=== PATIENT | female | born 1985 | race Caucasian/White ===

== ENCOUNTER → 2019-01-30 | Outpatient (CLI) | payer BC ==
--- NOTE | 2019-01-30 11:11 | Diagnostic Imaging Report ---
INDICATION: survey. TECHNIQUE: Multiple real-time grayscale images were obtained over the gravid uterus. COMPARISON: None FINDINGS: There is a single live fetus in a cephalic presentation. heart rate was recorded at 152 beats per minute. The placenta is posterior and fundal. Amniotic fluid volume is normal. survey demonstrates kidneys, bladder, and stomach to be unremarkable. brain is unremarkable. There is a three-vessel cord with normal insertion. spine is unremarkable. Four-chamber heart view is somewhat limited due to position. Biometrical measurements are as follows: Biparietal 5.73 cm, age 23 weeks 4 days. Head circumference 20.96 cm, age 23 weeks 1 days. Abdominal circumference 18.57 cm, age 23 weeks 3 days. Femur length 4.19 cm, age 23 weeks 5 days. Sonographic estimate age: 23 weeks 4 days. Sonographic estimated date of delivery: 06/03/2019. Estimated Weight: 595 gm (+/- 87 gm). LMP percentile: 93%. heart rate: 152 beats per minute. number: 1 of 1. IMPRESSION: Single live IUP approximately 23 weeks 4 days gestational age. The estimated date of confinement sonographically is 06/03/2019. survey is unremarkable although four-chamber heart view is limited and followup to be performed. Dictated by: Dictated on workstation # [id number]
== END ==
LOC: RAD 09:31
PROVIDERS: ATTEND Obstetrics & Gynecology
DX: Z36.89 Encounter for other specified antenatal screening (principal); Z3A.23 23 weeks gestation of pregnancy
CPT/HCPCS: 76805

== ENCOUNTER 2019-05-22 08:55 | Outpatient (CLI) | payer BC ==
[~2019-05-22] VITALS: Ht 177.8 cm; Wt 133.4 kg
[2019-05-22 09:05] VITALS: BP 144/90
[2019-05-22] MEDS ORDERED: CETI10TA17 PO (09:58)
[2019-05-22] MEDS ORDERED: DIPH25CA79 PO (09:58)
[2019-05-22] MEDS ORDERED: MELA1TAB27 PO (09:58)
[2019-05-22] MEDS ORDERED: FLUT9.9S NS (09:58)
[2019-05-22] MEDS ORDERED: INUL1TAB4 PO (09:58)
[2019-05-22] MEDS ORDERED: PNV11TAB5 PO (09:58)
[2019-05-23] MEDS ORDERED: ACHD5005 PO (07:21)
[2019-05-23] MEDS ORDERED: IBUP-844 PO (07:21)
[2019-05-23] MEDS ORDERED: DOCU100C37 PO (07:21)
== END 2019-05-22 09:20 | disposition home or self-care (01) ==
LOC: PREOP 08:55
PROVIDERS: ATTEND Obstetrics & Gynecology
DX: Z01.818 Encounter for other preprocedural examination (principal)
CPT/HCPCS: 87081

== ENCOUNTER 2019-05-23 06:00 | Inpatient (IN) | payer BC ==
[2019-05-23] VITALS (10 sets, daily range): BP systolic 108–139; BP diastolic 57–71
[~2019-05-23] VITALS: Ht 177.8 cm; Wt 132.6 kg
--- NOTE | 2019-05-23 05:55 | NUR ---
CHIP BUSTAMANTE presented to unit via ambulatory from home, accompanied by , with c/o BREECH PRESENTATION. CHIP BUSTAMANTE weighed, gowned, voided, and to bed. EFHM and TOCO applied, VS taken. CHIP BUSTAMANTE oriented to bed controls, call light, TV, heat, and A/C controls.
[~2019-05-23 06:00] MED LIST: CETI10TA17 PO; CITRIC ACID/SOB CIT (BICITRA) 30 ML UDC ONE; DIPH25CA79 PO; FAMOTIDINE 20MG/2ML IV (PEPCID) ONE; FLUT9.9S NS; INUL1TAB4 PO; LACTATED RINGERS 2,000 ML IV ONE; MELA1TAB27 PO; METOCLOPRAMIDE INJ 10 MG/2 ML (REGLAN) ONE; PNV11TAB5 PO; ceFAZolin 2 GM/50 ML NS 50 ML ONE
[2019-05-23] MEDS ORDERED: METOCLOPRAMIDE INJ 10 MG/2 ML (REGLAN) IV ONE (06:15)
[2019-05-23] MEDS ORDERED: FAMOTIDINE 20MG/2ML IV (PEPCID) IV ONE (06:15)
[2019-05-23] MEDS ORDERED: ceFAZolin 2 GM/50 ML NS 50 ML IV ONE (06:15)
[2019-05-23] MEDS ORDERED: CATHETER FLUSH 10 ML SYR IV PRN (06:15)
[2019-05-23] MEDS ORDERED: CITRIC ACID/SOB CIT (BICITRA) 30 ML UDC PO ONE (06:15)
[2019-05-23] MEDS: LACTATED RINGERS 1,000 ML IV PRN ×3 (06:24→08:00)
[2019-05-23 06:27] LABS: BASOPHILS % (AUTO) 0 % (0-10); EOSINOPHILS # (AUTO) 0.1 10^3/uL (0.0-0.3); EOSINOPHILS % (AUTO) 1 % (0-10); HEMATOCRIT 39 % (35-52); HEMOGLOBIN 12.9 G/DL (11.5-16.0); LYMPHOCYTES # (AUTO) 1.4 X 10^3 (1.0-4.0); LYMPHOCYTES % (AUTO) 17 % (12-44); MEAN CORPUSCULAR HEMOGLOBIN 30 PG (25-34); MEAN CORPUSCULAR HGB CONC 33 G/DL (32-36); MEAN CORPUSCULAR VOLUME 89 FL (80-99); MEAN PLATELET VOLUME 11.4 FL (7.4-10.4); MONOCYTES # (AUTO) 0.9 X 10^3 (0.0-1.0); MONOCYTES % (AUTO) 11 % (0-12); NEUTROPHILS # (AUTO) 5.9 X 10^3 (1.8-7.8); NEUTROPHILS % (AUTO) 71 % (42-75); PLATELET COUNT 148 10^3/uL (130-400); RED CELL DISTRIBUTION WIDTH 14.9 % (10.0-14.5); WHITE BLOOD COUNT 8.3 10^3/uL (4.3-11.0)
[2019-05-23 06:34] LABS: BILIRUBIN,URINE NEGATIVE (NEGATIVE); CLARITY,URINE SLIGHTLY CLOUDY; COLOR,URINE YELLOW; GLUCOSE, URINE (UA) NEGATIVE (NEGATIVE); KETONES,URINE 1+ (NEGATIVE); LEUKOCYTE ESTERASE ,URINE 3+ (NEGATIVE); NITRITE,URINE NEGATIVE (NEGATIVE); PH,URINE 5 (5-9); PROTEIN,URINE 2+ (NEGATIVE); UROBILINOGEN,URINE NORMAL (NORMAL)
[2019-05-23 06:43] LABS: BACTERIA,URINE MODERATE /HPF
[2019-05-23] MEDS ORDERED: OXYTOCIN/NORMAL SALINE 500 ML IV ONE ×3 (06:54→10:15)
[2019-05-23] MEDS ORDERED: ONDANSETRON 4 MG/2 ML (SDV) Z0FRAN ONE (06:54)
[2019-05-23] MEDS ORDERED: KETOROLAC 30 MG/ML VIAL ONE (06:54)
[2019-05-23] MEDS ORDERED: fentaNYL INJECTION 100 MCG/2 ML AMP ONE (06:55)
--- NOTE | 2019-05-23 07:10 | History & Physical-OB ---
OB - Chief Complaint & HPI Date/Time Date of Admission: Date of Admission: May 23, 2019 at 06:00 Date seen by a Provider: May 23, 2019 Time Seen by a Provider: 07:00 Chief Complaint/History OB-Reason for Admission/Chief: Section Hx : 1 Hx Para: 0 Expected Date of Delivery: Jun 03, 2019 Gestational Age in Weeks: 38 Gestational Age in Days: 3 Indication for : malpresentation Admission Nurse Assessment Rev: Yes History of Labs Opos Antibody neg RI RPR NR HBsAg NR HIV NR GC neg GBS neg Allergies and Home Medications Allergies Coded Allergies: No Known Drug Allergies (Unverified , 05/23/19) Home Medications Cetirizine HCl 10 Mg Tablet, 10 MG PO HS, (Reported) Diphenhydramine HCl 25 Mg Capsule, 50 MG PO HS, (Reported) take 2 (25mg) tabs Fluticasone Propionate 9.9 Ml [place].susp, 1 SPRAY NS BID, (Reported) Inulin/Chromium Picolinate 1 Each Tab.chew, 1 EACH PO HS, (Reported) Melatonin/Pyridoxine HCl (B6) 1 Each Tablet, 3 MG PO HS, (Reported) Uiv936/FA/Omega3/Dha/Fish Oil 1 Each Tab.chew, 1 EACH PO HS, (Reported) Patient Home Medication List Home Medication List Reviewed: Yes OB - History Hx of Present Care: Yes Ultrasounds: Normal mid trimester US Obstetrical Complications: Gestational Diabetes Medical Complications: None Patient Past Medical History n/a Social History/Family History Alcohol Use: Denies Use Recreational Drug Use: No OB - Admission Exam Physical Exam Vitals: Vital Signs 05/23/19 06:15 Temp 98.6 Pulse 93 Resp 18 B/P (MAP) 139/71 (93) O2 Delivery Room Air HEENT: NCAT Heart: Rhythm Normal Lungs: Clear Abdomen: Gravid Extremities: Normal Reflexes: Normal Heart Rate: 140's Accelerations: Accelerations Present Decelerations: No Decelerations Short Term Variability: Present Half-Way Variability: Average (6-25) Contractions on Admission: 6-10 Minutes Apart Labs Laboratory Tests Test 05/23/19 06:05 05/23/19 06:15 Range/Units Urine Color YELLOW Urine Clarity SLIGHTLY CLOUDY Urine pH 5 5-9 Urine Specific [place] 1.030 H 1.016-1.022 Urine Protein 2+ H NEGATIVE Urine Glucose (UA) NEGATIVE NEGATIVE Urine Ketones 1+ H NEGATIVE Urine Nitrite NEGATIVE NEGATIVE Urine Bilirubin NEGATIVE NEGATIVE Urine Urobilinogen NORMAL NORMAL MG/DL Urine Leukocyte Esterase 3+ H NEGATIVE Urine RBC (Auto) NEGATIVE NEGATIVE Urine RBC NONE /HPF Urine WBC 10-25 H /HPF Urine Squamous Epithelial Cells 10-25 H /HPF Urine Crystals NONE /LPF Urine Bacteria MODERATE H /HPF Urine Casts NONE /LPF Urine Mucus SMALL H /LPF Urine Culture Indicated YES White Blood Count 8.3 4.3-11.0 10^3/uL Red Blood Count 4.37 4.35-5.85 10^6/uL Hemoglobin 12.9 11.5-16.0 G/DL Hematocrit 39 35-52 % Mean Corpuscular Volume 89 80-99 FL Mean Corpuscular Hemoglobin 30 25-34 PG Mean Corpuscular Hemoglobin Concent 33 32-36 G/DL Red Cell Distribution Width 14.9 H 10.0-14.5 % Platelet Count 148 130-400 10^3/uL Mean Platelet Volume 11.4 H 7.4-10.4 FL Neutrophils (%) (Auto) 71 42-75 % Lymphocytes (%) (Auto) 17 12-44 % Monocytes (%) (Auto) 11 0-12 % Eosinophils (%) (Auto) 1 0-10 % Basophils (%) (Auto) 0 0-10 % Neutrophils # (Auto) 5.9 1.8-7.8 X 10^3 Lymphocytes # (Auto) 1.4 1.0-4.0 X 10^3 Monocytes # (Auto) 0.9 0.0-1.0 X 10^3 Eosinophils # (Auto) 0.1 0.0-0.3 10^3/uL Basophils # (Auto) 0.0 0.0-0.1 10^3/uL OB - Assessment/Plan/Diagnosis Assessment Assessment: section Admission Dx 34 yo @ 38 weeks GDM Breech presentation GBS neg Admission Status: Inpatient Order (span 2 midnights) Reason for Inpatient Admission: Primary at term Breech presentation Plan Plan: Section JANESSA KAUR DO May 23, 2019 07:10
[2019-05-23] MEDS ORDERED: MEASLES,MUMPS,RUBELLA 1 EA INJ SC SCH (07:15)
[2019-05-23] MEDS ORDERED: TETANUS,DIPTH,PERTUSS P/F (BOOSTRIX) 0.5 ML VIAL IM SCH (07:15)
[2019-05-23] MEDS ORDERED: ONDANSETRON 4 MG/2 ML (SDV) Z0FRAN IVP PRN ×2 (07:15→08:45)
--- NOTE | 2019-05-23 07:15 | Discharge Inst-Women's Service ---
Discharge Inst-Women's Serv Depart Medication/Instructions New, Converted or Re-Newed RX: RX on Chart Final Diagnosis POD 2 PLTCS Consults/Follow Up Additional Follow Up: Yes Orders/Referrals Dr. Rivera in 7-10 days and in 6 weeks Activity Activity: Activity as Tolerated Driving Instructions: No Driving for 1 Week NO SMOKING: NO SMOKING Nothing Inside Vagina: No Douching, No [place], No Tampons Diet Discharge Diet: No Restrictions Symptoms to Report to : Bleeding Excessive, Pain Increased, Fever Over 101 Degrees F, Vaginal Bleeding Increase, Questions/Concerns For Any Problems or Questions: Contact Your Physician Skin/Wound Care Infection Signs and Symptoms: Increased Redness, Foul Odor of Wound, Increased Drainage, Skin Itchy or Has a Rash, Increased Swelling, Temperature Above 101 F Operative Area Clean and Dry: Keep Incision Clean/Dry Stitches/Point Comfort/Dermabond: Dermabond, Care of Stitches Bathing Instructions: JANESSA Cruz DO May 23, 2019 07:15
[2019-05-23] MEDS ORDERED: DOCU100C37 PO (07:21)
[2019-05-23] MEDS ORDERED: ACHD5005 PO (07:21)
[2019-05-23] MEDS ORDERED: IBUP-844 PO (07:21)
[2019-05-23] MEDS ORDERED: BUPIVACAINE 0.25% 30 ML (SENSORCAINE) VIAL ONE (08:05)
[2019-05-23] MEDS ORDERED: PHENYLEPHRINE 100 MCG/ML 10 ML (ANESTHESIA) SYR ONE (08:05)
[2019-05-23] MEDS ORDERED: morphine INJ 10 MG/ML 1ML (SYR OR VIAL) IVP ONE (08:45)
[2019-05-23] MEDS ORDERED: NALOXONE 0.4 MG/ML 1 ML (NARCAN) VIAL IV PRN ×2 (08:45)
[2019-05-23] MEDS ORDERED: diphenhydrAMINE 50 MG/ML INJ (BENADRYL) IV PRN (08:45)
[2019-05-23] MEDS ORDERED: METOCLOPRAMIDE INJ 10 MG/2 ML (REGLAN) IV PRN (08:45)
[2019-05-23] MEDS ORDERED: ONDANSETRON 4 MG/2 ML (SDV) Z0FRAN IV PRN (08:45)
--- NOTE | 2019-05-23 10:00 | NUR ---
Low transverse incision covered via ABD. No drainage. Cubae in nursery receiving O2 and Level 2 care. Soledad no rooming in at this time. Addendum: 05/23/19 at 1140 by TAYLA GUERRERO RN Amended: Links added.
[2019-05-23] MEDS: OXYTOCIN/NORMAL SALINE 500 ML IV SCH ×2 (10:10→11:16)
[2019-05-23] MEDS: DOCUSATE SODIUM 100 MG (COLACE) CAP PO SCH ×2 (10:46→23:46)
--- NOTE | 2019-05-23 11:00 | NUR ---
RT notified for incentive spirometery
--- NOTE | 2019-05-23 11:03 | NUR ---
Notified Dr Rivera and received Toradol order.
[2019-05-23] MEDS ORDERED: KETOROLAC 30 MG/ML VIAL IVP SCH (11:15)
[2019-05-23] MEDS ORDERED: IBUPROFEN 600 MG (MOTRIN) TAB PO SCH (12:00)
--- NOTE | 2019-05-23 12:15 | NUR ---
Mom to wheelchair into nursery to see dann. IV infusing without difficulty.
--- NOTE | 2019-05-23 13:00 | NUR ---
Room returned to room. No s/s of distress.
[2019-05-23] MEDS: KETOROLAC 30 MG/ML VIAL IVP SCH ×2 (13:50→19:50)
[2019-05-23] MEDS: CATHETER FLUSH 10 ML SYR IV SCH (14:26)
--- NOTE | 2019-05-23 14:41 | NUR ---
Pt up to bathroom. voided 300cc of blood tinge urine.
--- NOTE | 2019-05-23 16:28 | OPERATIVE REPORT ---
DATE OF SERVICE: 05/23/2019 PREOPERATIVE DIAGNOSES: 1. A 34-year-old G1, P0 at 38 weeks gestation. 2. Gestational diabetes. 3. Breech presentation. POSTOPERATIVE DIAGNOSES: 1. A 34-year-old G1, P0 at 38 weeks gestation. 2. Gestational diabetes. 3. Breech presentation. PROCEDURE: Primary low transverse section. SURGEON: Corbin Rivera DO ANESTHESIA: Spinal. ESTIMATED BLOOD LOSS: 500 mL. URINE OUTPUT: 100 mL clear at the end of the procedure. FLUIDS: 1600 mL lactated Ringer's solution. FINDINGS: A live male infant weighing 9 pounds 5 ounces, Apgars of 8 and 9. Grossly normal appearing uterus, bilateral fallopian tubes and ovaries. SPECIMENS SENT: Placenta. INDICATIONS FOR PROCEDURE: This 34-year-old female who is a patient that had sought care in my office and her care was complicated by gestational diabetes having difficulties control with diet towards the end, she was also found to be in the breech presentation and have polyhydramnios on her last ultrasound evaluation. Yesterday breech presentation was persistent. I discussed the patient proceeding with versus external cephalic version. There were significant risk factors. I was concerned with this external cephalic version including the baby's estimated weight, so we agreed to proceed with primary . Risks of the procedure were discussed with the patient in detail and after all of her questions were answered with her present, consent was obtained in the preoperative area and the patient was taken to the operating room. OPERATIVE REPORT IN DETAIL: Once in the operating room, spinal anesthesia was found to be adequate. She was placed in the supine position with a leftward tilt, prepped and draped in normal sterile fashion. A Pfannenstiel skin incision was made with a knife and carried down to the underlying fascia using Bovie cautery. Fascial incision extended laterally using Bovie cautery. Superior aspect of the fascial incision was then grasped with Korina clamps, tented up and dissected off the underlying rectus muscles. The inferior aspect of the fascial incision was then grasped with Korina clamps, tented up and dissected off the underlying rectus muscles. The rectus muscles were then dissected on the midline using Dowd scissors, which exposed the peritoneum, which entered bluntly and extended using blunt traction. An Fabian ring retractor was placed in the peritoneal incision, which offers excellent lateral sidewall retraction. I then make a low transverse incision into the vesicouterine peritoneum and bluntly dissected off the lower uterine segment. I proceeded with Myotomy until membranes were visualized, at which point I extended the uterine incision laterally and superiorly using bandage scissors. Amniotomy is incidentally performed in doing this and clear fluid was noted. The infant was found in a complete breech presentation. The feet grasped and elevated up to the incision were I am able to deliver the buttocks and I delivered the up into the upper torso at which point I delivered the arms after facing the downward by sweeping the arms across the chest and then I delivered the head by gentle extension of the body and flexion of the neck. The nares and oropharynx were bulb suctioned on the operative field. The cord was doubly clamped and cut and infant was handed off to waiting nurses in attendance. Cord blood was collected. Three-vessel cord with intact placenta was delivered spontaneously thereafter. IV Pitocin was initiated to facilitate uterine contraction. Uterine fundus became firmer with bimanual massage. Uterus was then exteriorized and cleared of all endometrial clots and debris. I then proceeded to close the uterine incision using 0 Vicryl suture in a running locked fashion. A second layer of imbricating 0 Monocryl was placed. Excellent hemostasis was noted after doing this. I then placed the uterus back in the pelvis, copiously irrigated the pelvis using normal saline. Once again, there was no active bleeding noted from any of my dissection planes. I placed Interceed antiadhesive over my low transverse incision and proceeded with closing the peritoneum using 3-0 Vicryl suture in running fashion. The rectus muscles were reapproximated using 3-0 Vicryl suture in interrupted fashion. The fascia was reapproximated with 0 Vicryl suture in a running fashion. The subcutaneous tissue was reapproximated using 3-0 plain interrupted subcutaneous stitches and skin reapproximated using 4-0 Monocryl running subcuticular. Dermabond was applied to incision and sterile dressing with adhesive white tape. The patient tolerated the procedure well and was taken to the recovery area in stable condition. Lap and sponge counts were correct at the end of the procedure. Instrument counts were correct as well. Two grams of Ancef were given preoperatively for infection prophylaxis. Job ID: [id number] DocumentID: [id number] Dictated Date: 05/23/2019 10:03:32 Behavioral Health Counselor Date: 05/23/2019 16:27:53 Dictated By: DO THAO PRICE
[2019-05-23] MEDS: HYDROcodone/APAP 5 MG/325 MG (LORTAB) TAB PO PRN (17:32)
[2019-05-24 02:00] VITALS: BP 102/59
[2019-05-24] MEDS: CATHETER FLUSH 10 ML SYR IV SCH ×2 (02:00→07:31)
[2019-05-24] MEDS: HYDROcodone/APAP 5 MG/325 MG (LORTAB) TAB PO PRN ×3 (02:03→22:05)
[2019-05-24] MEDS: KETOROLAC 30 MG/ML VIAL IVP SCH ×2 (02:04→07:30)
[2019-05-24 06:47] LABS: BASOPHILS % (AUTO) 0 % (0-10); EOSINOPHILS # (AUTO) 0.1 10^3/uL (0.0-0.3); EOSINOPHILS % (AUTO) 2 % (0-10); HEMATOCRIT 34 % (35-52); HEMOGLOBIN 11.3 G/DL (11.5-16.0); LYMPHOCYTES # (AUTO) 1.3 X 10^3 (1.0-4.0); LYMPHOCYTES % (AUTO) 17 % (12-44); MEAN CORPUSCULAR HEMOGLOBIN 30 PG (25-34); MEAN CORPUSCULAR HGB CONC 33 G/DL (32-36); MEAN CORPUSCULAR VOLUME 91 FL (80-99); MONOCYTES # (AUTO) 0.8 X 10^3 (0.0-1.0); MONOCYTES % (AUTO) 11 % (0-12); NEUTROPHILS # (AUTO) 5.3 X 10^3 (1.8-7.8); NEUTROPHILS % (AUTO) 70 % (42-75); PLATELET COUNT 123 10^3/uL (130-400); RED CELL DISTRIBUTION WIDTH 15.3 % (10.0-14.5); WHITE BLOOD COUNT 7.5 10^3/uL (4.3-11.0)
[2019-05-24 07:12] LABS: BUN/CREATININE RATIO 13; CALCIUM 8.7 MG/DL (8.5-10.1); CARBON DIOXIDE 19 MMOL/L (21-32); CHLORIDE 112 MMOL/L (98-107); CREATININE SERUM 0.71 MG/DL (0.60-1.30); GFR ESTIMATED > 60; GLUCOSE 69 MG/DL (70-105); POTASSIUM 4.2 MMOL/L (3.6-5.0); SODIUM 139 MMOL/L (135-145)
[2019-05-24] MEDS: DOCUSATE SODIUM 100 MG (COLACE) CAP PO SCH ×2 (07:31→20:40)
[2019-05-24 07:36] VITALS: BP 107/69
--- NOTE | 2019-05-24 07:36 | NUR ---
initial shift assessment completed, see interventions for further. scheduled medications given, see eMar for further.
--- NOTE | 2019-05-24 07:45 | Postpartum Progress Note ---
Note Note Day # 1 Subjective: Patient is without complaints. Ambulating, voiding. Tolerating a regular diet without nausea or vomiting. Normal lochia. Pain is well controlled with oral pain medications. Objective: Physical Exam: General - Alert and oriented, no apparent distress Abdomen - Soft, appropriately tender to palpation, non-distended, fundus firm at umbilicus Extremities - no edema, negative Apple's bilaterally Incision- c/d/i Assessment: POD 1 PLTCS- Breech Acute blood loss anemia Plan: Routine care. Encourage breast feeding. Encourage ambulation. Ferrous sulfate supplementation. Plan for discharge tomorrow Vitals - Labs Vital Signs - I&O Vital Signs Date Time Temp Pulse Resp B/P (MAP) Pulse Ox O2 Delivery O2 Flow Rate FiO2 05/24/19 02:00 98.2 93 16 102/59 (73) 97 05/23/19 21:10 98.9 90 18 117/57 (77) 97 05/23/19 16:13 99.6 78 16 109/57 (74) 98 Room Air 05/23/19 15:58 Room Air 05/23/19 13:53 99.6 79 18 112/62 (79) 97 Room Air 05/23/19 11:45 99.6 88 18 108/57 (74) 93 Room Air 05/23/19 10:00 Room Air 05/23/19 10:00 98.2 77 18 115/71 (86) 99 Room Air 05/23/19 09:00 97.1 18 97 Room Air 05/23/19 09:00 Room Air 05/23/19 08:45 Room Air 05/23/19 08:45 97.0 18 98 Room Air 05/23/19 08:30 Room Air 05/23/19 08:30 97.0 18 98 Room Air 05/23/19 08:20 97.0 18 98 Room Air 05/23/19 08:18 Room Air I & O 05/24/19 07:00 Intake Total 3050 ml Output Total 3515 ml Balance -465 ml Labs Laboratory Tests 05/24/19 06:20: Sodium Level 139, Potassium Level 4.2, Chloride Level 112H, Carbon Dioxide Level 19L, Anion Gap 8, Blood Urea Nitrogen 9, Creatinine 0.71, Estimat Glomerular Filtration Rate > 60, BUN/Creatinine Ratio 13, Glucose Level 69L, Calcium Level 8.7 7/10/19 06:22: White Blood Count 7.5, Red Blood Count 3.78L, Hemoglobin 11.3L, Hematocrit 34L, Mean Corpuscular Volume 91, Mean Corpuscular Hemoglobin 30, Mean Corpuscular Hemoglobin Concent 33, Red Cell Distribution Width 15.3H, Platelet Count 123L, Mean Platelet Volume 11.0H, Neutrophils (%) (Auto) 70, Lymphocytes (%) (Auto) 17, Monocytes (%) (Auto) 11, Eosinophils (%) (Auto) 2, Basophils (%) (Auto) 0, Neutrophils # (Auto) 5.3, Lymphocytes # (Auto) 1.3, Monocytes # (Auto) 0.8, Eosinophils # (Auto) 0.1, Basophils # (Auto) 0.0 JANESSA KAUR DO May 24, 2019 07:45
--- NOTE | 2019-05-24 08:32 | Anesthesia-Regional Post-Op ---
Regional Patient Condition Mental Status: Alert, Oriented x3 Circulation: Same as Pre-Op Headache: Absent Sensation: Full Recovery Motor Block: Absent Post Op Complications Complications None Follow Up Care/Instructions Patient Instructions None needed. Anesthesia/Patient Condition Patient is doing well, no complaints, stable vital signs, no apparent adverse anesthesia problems. No complications reported per nursing. LAM ROBERTSON CRNA May 24, 2019 08:31
[2019-05-24 14:40] VITALS: BP 106/66
[2019-05-24] MEDS: IBUPROFEN 600 MG (MOTRIN) TAB PO SCH ×2 (14:40→20:40)
--- NOTE | 2019-05-24 14:59 | NUR ---
was called r/t pt requesting dismissal after 24 hours. new orders received. Addendum: 05/24/19 at 1502 by DENICE MENENDEZ RN error-wrong chart.
[2019-05-24] MEDS ORDERED: BISACODYL 5 MG (DULCOLAX) TABLET PO NR (15:00)
--- NOTE | 2019-05-24 15:00 | NUR ---
report given to EdeRN
--- NOTE | 2019-05-24 16:48 | NUR ---
PT IN BED, VISITING WITH S/O AND VISITOR AT THE BEDSIDE. NO NEEDS VOICED. CALL LIGHT WITHIN REACH.
--- NOTE | 2019-05-24 17:11 | NUR ---
PT VOICES THAT SHE HAS ALREADY RECEIVED THE TDAP VACCINE DURING THIS .
[2019-05-24 20:40] VITALS: BP 108/64
[2019-05-25 03:03] VITALS: BP 109/64
[2019-05-25] MEDS: IBUPROFEN 600 MG (MOTRIN) TAB PO SCH ×2 (03:03→09:43)
--- NOTE | 2019-05-25 07:25 | Postpartum Progress Note ---
Note Note Day # 2 Subjective: Patient is without complaints. Ambulating, voiding. Tolerating a regular diet without nausea or vomiting. Normal lochia. Pain is well controlled with oral pain medications. Objective: Physical Exam: General - Alert and oriented, no apparent distress Abdomen - Soft, appropriately tender to palpation, non-distended, fundus firm at umbilicus Extremities - no edema, negative Apple's bilaterally Incision- c/d/i Assessment: POD 2 PLTCS Acute blood loss anemia Plan: Routine care. Encourage breast feeding. Encourage ambulation. Ferrous sulfate supplementation. Plan for discharge today Vitals - Labs Vital Signs - I&O Vital Signs Date Time Temp Pulse Resp B/P (MAP) Pulse Ox O2 Delivery O2 Flow Rate FiO2 05/25/19 03:03 99.0 88 18 109/64 (79) 98 Room Air 05/24/19 20:40 99.3 101 18 108/64 (79) 98 Room Air 05/24/19 14:40 98.6 89 18 106/66 (79) 95 Room Air 05/24/19 07:36 98.2 107 18 107/69 (82) 98 Room Air I & O 05/25/19 07:00 Intake Total 840 ml Output Total 1000 ml Balance -160 ml Labs Microbiology 05/23/19 Urine Culture - Final, Complete 3 or more isolates JANESSA KAUR DO May 25, 2019 07:25
[2019-05-25 08:00] VITALS: BP 128/58
--- NOTE | 2019-05-25 08:00 | NUR ---
A.M. ASSESSMENT COMPLETED. VSS. PLANNING TO GO HOME TODAY.
[2019-05-25] MEDS: DOCUSATE SODIUM 100 MG (COLACE) CAP PO SCH (09:43)
--- NOTE | 2019-05-25 10:00 | NUR ---
AMBULATING IN THE HORAVTH WITHOUT PROBLEMS.
--- NOTE | 2019-05-25 12:00 | NUR ---
DR. KAUR HERE TO SEE PT. PLAN FOR DISCHARGE.
[2019-05-25 12:30] VITALS: BP 118/68
--- NOTE | 2019-05-25 13:00 | NUR ---
CIR[facility] CARE SHOWN TO PARENTS BY Guanako ANTONIO RN. CONTINUES TO CARE FOR IN ROOM. DOING WELL. HAS ASSISTED PRN.
--- NOTE | 2019-05-25 14:10 | NUR ---
DISCHARGE INSTRUCTIONS REVIEWED WITH COPY TO PT. RXS GIVEN. STATES UNDERSTANDING OF ALL INSTRUCTIONS AND NEED TO F/U SCHEDULED AND NEEDED.
[2019-05-25 14:45] VITALS: BP 118/68
--- NOTE | 2019-05-25 14:45 | NUR ---
DISMISSED AMB FROM [facility] WITH TO FAMILY CAR IN STABLE CONDITION ACC BY SPOUSE AND KIMBERLEY YOUNG.
== END 2019-05-25 14:45 | disposition home or self-care (01) | DRG 787 ==
LOC: LDRP 06:00
PROVIDERS: ADMIT Obstetrics & Gynecology; ATTEND Obstetrics & Gynecology
PROC: 10D00Z1 Extraction of Products of Conception, Low, Open Approach (ICD-10-PCS; principal; 2019-05-23 07:13)
DX: O32.1XX0 Maternal care for breech presentation, not applicable or unspecified (principal); O40.3XX0 Polyhydramnios, third trimester, not applicable or unspecified; O24.420 Gestational diabetes mellitus in childbirth, diet controlled; O90.81 Anemia of the puerperium; D62 Acute posthemorrhagic anemia; Z3A.38 38 weeks gestation of pregnancy; Z37.0 Single live birth
CPT/HCPCS: 36415; 80048; 81000; 85025; 86850; 86900; 86901; 87088; 94664

== ENCOUNTER 2019-06-04 23:53 | Emergency (ER) | payer BC ==
[~2019-06-04] VITALS: Ht 177.8 cm; Wt 132.6 kg
[~2019-06-04 23:53] MED LIST changes: +ACHD5005 PO; -CITRIC ACID/SOB CIT (BICITRA) 30 ML UDC ONE; +DOCU100C37 PO; -FAMOTIDINE 20MG/2ML IV (PEPCID) ONE; +IBUP-844 PO; -LACTATED RINGERS 2,000 ML IV ONE; -METOCLOPRAMIDE INJ 10 MG/2 ML (REGLAN) ONE; -ceFAZolin 2 GM/50 ML NS 50 ML ONE
[2019-06-05] MEDS ORDERED: CEPH-507 PO (00:21)
--- NOTE | 2019-06-05 00:21 | ED General ---
General Stated Complaint: INCISION COMING APART Source of Information: Patient, Old Records Exam Limitations: No Limitations History of Present Illness Date Seen by Provider: Jun 04, 2019 Time Seen by Provider: 23:58 Initial Comments This 34-year-old young lady presents to the emergency room with drainage from her section incision that occurred suddenly this evening. Her section was on May 23 and was performed by Dr. KAUR. She was experiencing routine healing without complications until tonight when she suddenly noticed copious drainage coming from the incision. The drainage is serosanguineous. She denies any significant pain or inflammation around the incision. She is afebrile. Allergies and Home Medications Allergies Coded Allergies: No Known Drug Allergies (Unverified , 05/23/19) Home Medications Cephalexin 500 Mg Capsule, 500 MG PO QID Prescribed by: GEMMA PAUL on 06/05/19 0021 Cetirizine HCl 10 Mg Tablet, 10 MG PO HS, (Reported) Diphenhydramine HCl 25 Mg Capsule, 50 MG PO HS, (Reported) take 2 (25mg) tabs Docusate Sodium 100 Mg Capsule, 100 MG PO BID PRN for CONSTIPATION-1ST LINE Prescribed by: JANESSA KAUR on 05/23/19 07 Fluticasone Propionate 9.9 Ml [place].susp, 1 SPRAY NS BID, (Reported) Hydrocodone Bit/Acetaminophen 1 Tab Tab, 2 TAB PO Q6HR PRN for PAIN-MODERATE Prescribed by: JANESSA KAUR on 05/23/19720 Ibuprofen 600 Mg Tablet, 600 MG PO Q6HR Prescribed by: JANESSA KAUR on 05/23/19720 Inulin/Chromium Picolinate 1 Each Tab.chew, 1 EACH PO HS, (Reported) Melatonin/Pyridoxine HCl (B6) 1 Each Tablet, 3 MG PO HS, (Reported) Yhr153/FA/Omega3/Dha/Fish Oil 1 Each Tab.chew, 1 EACH PO HS, (Reported) Patient Home Medication List Home Medication List Reviewed: Yes Review of Systems Review of Systems Constitutional: no symptoms reported EENTM: see HPI Respiratory: no symptoms reported Cardiovascular: no symptoms reported Gastrointestinal: no symptoms reported Genitourinary: see HPI : No Musculoskeletal: no symptoms reported Skin: see HPI Psychiatric/Neurological: No Symptoms Reported Hematologic/Lymphatic: No Symptoms Reported Immunological/Allergic: no symptoms reported Past Ozswvqp-[id number]-Dluxff Hx Past Med/Social Hx: Reviewed and Corrections made Patient Social History Recent Foreign Travel: No Contact w/Someone Who Travel: No Recent Hopitalizations: No Seasonal Allergies Seasonal Allergies: Yes Past Medical History Surgeries: Yes (ureter kinked required sx to unkinked) Section Respiratory: No Cardiac: No Neurological: No : No Genitourinary: Yes (hypoplastic kidney) Gastrointestinal: No Musculoskeletal: No Endocrine: Yes (gestational diabetes) HEENT: No Cancer: No Psychosocial: No Integumentary: No Blood Disorders: No Family Medical History Diabetes mellitus grandparents FH: breast cancer grandparents FH: pancreatic cancer grandparents Hypertension grandparents Myocardial infarction grandparents Physical Exam Vital Signs Vital Signs - First Documented 06/05/19 00:03 Temp 98.0 Pulse 70 Resp 20 B/P (MAP) 149/88 (108) Pulse Ox 98 O2 Delivery Room Air Capillary Refill : Height, Weight, BMI Height: 5'10.00" Weight: 292lbs. 4.0oz. 132.767242zr; 41.9 BMI Method: General Appearance: No Apparent Distress, WD/WN HEENT: Normal ENT Inspection Respiratory: Lungs Clear, Normal Breath Sounds, No Accessory Muscle Use Cardiovascular: Regular Rate, Rhythm, No Edema Gastrointestinal: Non Tender, Soft Skin: Normal Color, Warm/Dry, Other (well healing incision without tenderness or inflammation. Serosanguineous drainage coming from the left end of the incision) Progress/Results/Core Measures Suspected Sepsis SIRS Temperature: Pulse: Respiratory Rate: Blood Pressure / Mean: Results/Orders My Orders Orders - GEMMA MARTELL MD Cephalexin Capsule (Keflex Capsule) (06/05/19 00:30) Wound Culture (06/05/19 00:21) Medications Given in ED Current Medications Medications Dose Ordered Sig/Elizabeth Route Start Time Stop Time Status Last Admin Dose Admin Cephalexin HCl 500 mg ONCE ONCE PO 06/05/19 00:30 06/05/19 00:31 DC 06/05/19 00:30 500 MG Vital Signs/I&O 06/05/19 7 00:03 00:33 Temp 98.0 98.0 Pulse 70 70 Resp 20 20 B/P (MAP) 149/88 (108) 149/88 (108) Pulse Ox 98 98 O2 Delivery Room Air Capillary Refill : Progress Note : Progress Note A significant amount of serosanguineous drainage was expressed from the left side of the incision. There is no purulence or inflammation to suggest infection. A wound culture was obtained as a precaution and patient was started on Keflex. Follow-up with Dr. KAUR was advised. She was advised to continue with antibiotic therapy unless otherwise instructed by Dr. KAUR. I suspect she has a seroma that broke open. Departure Impression Primary Impression: Drainage from wound Additional Impression: Seroma after procedure Disposition: HOME, SELF-CARE Condition: Improved Departure-Patient Inst. Decision time for Depature: 00:19 Referrals: JANESSA KAUR DO (PCP/Family) Primary Care Physician Patient Instructions: NO INSTRUCTIONS GIVEN Add. Discharge Instructions: Dressed with sterile medical dressing to absorb drainage. Return to care if you notice changes such as increasing redness, increasing pain, puslike drainage, or development of fever. Contact Dr. KAUR's office for a follow-up appointment and reevaluation of the wound. Your drainage is likely caused by a seroma that has broken open. Expect some degree of drainage for the next few days. Although infection is unlikely at this time, continue antibiotics as a precaution unless otherwise instructed by Dr. KAUR. Scripts Cephalexin (Keflex) 500 Mg Capsule 500 MG PO QID, #20 CAP Prov: GEMMA MARTELL MD 06/05/19 Copy Copies To 1: JANESSA KAUR JOSHUA T MD Jun 05, 2019 00:21
[2019-06-05] MEDS ORDERED: CEPHALEXIN 250 MG (KEFLEX) CAP PO ONE (00:30)
[2019-06-05 00:33] VITALS: BP 149/88
== END 2019-06-05 00:33 | disposition home or self-care (01) ==
LOC: EDUNIT# 23:53 → ER 23:55
DX: O99.73 Diseases of the skin and subcutaneous tissue complicating the puerperium (principal); L76.34 Postprocedural seroma of skin and subcutaneous tissue following other procedure; Z79.51 Long term (current) use of inhaled steroids; Z80.3 Family history of malignant neoplasm of breast; Z80.0 Family history of malignant neoplasm of digestive organs; Z82.49 Family history of ischemic heart disease and other diseases of the circulatory system
CPT/HCPCS: 87070; 87205